=== PATIENT | male | born 1995 | race Caucasian/White ===

== ENCOUNTER 2023-09-24 11:00 | Outpatient (RCR) | payer OTHER, SELFPAY | END 2024-01-22 23:59 | disposition home or self-care (01) | PROVIDERS: PCP Physician Assistant Medical; Visit Provider Physician Assistant Medical | DX: M51.26 Other intervertebral disc displacement, lumbar region (principal); M62.89 Other specified disorders of muscle; R10.2 Pelvic and perineal pain; R10.30 Lower abdominal pain, unspecified; R15.1 Fecal smearing; N50.812 Left testicular pain; N50.811 Right testicular pain; Z51.89 Encounter for other specified aftercare | CPT/HCPCS: 97110; 97140; 97535 ==